=== PATIENT | female | born 1945 | race Caucasian/White ===

== ENCOUNTER 2017-07-17 09:11 | Day surgery (SDC) | payer MEDICARE ==
[~2017-07-17] VITALS: Ht 162.6 cm; Wt 83.9 kg
[~2017-07-17 09:11] MED LIST: LISI5 PO; MELO7.5 PO
[2018-04-29] MEDS ORDERED: Zofran8 MG PO (12:18)
[2018-04-29] MEDS ORDERED: Pepcid40 MG PO (12:18)
== END 2017-07-17 22:39 | disposition home or self-care (01) ==
LOC: ORSCMMR 09:11
PROVIDERS: Internal Medicine Gastroenterology
PROC: 0DJD8ZZ Inspection of Lower Intestinal Tract, Via Natural or Artificial Opening Endoscopic (ICD-10-PCS; principal; 2017-07-17 10:00)
DX: Z12.11 Encounter for screening for malignant neoplasm of colon (principal); K57.30 Diverticulosis of large intestine without perforation or abscess without bleeding; I10 Essential (primary) hypertension; Z79.899 Other long term (current) drug therapy
CPT/HCPCS: J7120

== ENCOUNTER → 2018-02-17 | Outpatient (CLI) | payer MEDICARE | LOC: PLD 07:17 → LAB SHORT 07:17 | DX: C54.1 Malignant neoplasm of endometrium (principal) | CPT/HCPCS: 88305 ==